=== PATIENT | male | born 1980 | race African-American/Black ===

== ENCOUNTER 2019-02-09 10:40 | Emergency (ER) | payer BC ==
--- NOTE | 2019-02-09 10:58 | ED Physician Documentation ---
Sore Throat/Dental Pain - HISTORIAN Historian: patient - HPI Chief Complaint: Dental Pain Additional Information: Patient is a 38-year-old male that presents to the ER after his daughter accidentally hit his bottom teeth with her head. He states his teeth are pretty sore- teeth do not appear loose- no lacerations or abrasions to lips/gums. Denies any bleeding of teeth, tongue, or throat. Onset: hours Context: Other (tooth injury) Associated Symptoms: denies: unable to swallow Worsened By: nothing Further Comments: no - ROS CONST: no problems CVS/RESP: none GI/: denies: nausea, vomiting MS/SKIN/LYMPH: denies: muscle aches NEURO/PSYCH: none - PAST HX Past History: none Other History: none Immunizations: UTD Allergies/Adverse Reactions: Allergies Allergy/AdvReac Type Severity Reaction Status Date / Time tramadol AdvReac Abdominal Verified 02/09/19 11:01 Pain Home Medications: Ambulatory Orders Medication Instructions Recorded NK 02/09/19 - SOCIAL HX Smoking History: non-smoker Alcohol Use: none Drug Use: none - FAMILY HX Family History: No Dental Pain Physical Exam - EXAM General Appearance: no acute distress, alert Head/Neck: head nml inspection, neck nml inspection Eyes: PERRL Mouth/Throat: lips nml, gums nml, pharynx nml, voice nml, membranes nml, dental tenderness (no feeling of loose teeth) Ear/Nose: nml inspection Respiratory: breath sounds nml CVS: heart sounds nml Abdomen: normal bowel sounds Skin: warm/dry, normal color Neuro/Psych: none Discharge Clincal Impression: Pain, dental Referrals: Primary Doctor,No [Primary Care Provider] - 2 Days Additional Instructions: Teeth are intact Alternate Tylenol and Ibuprofen as needed for discomfort Follow up with Dentist for routine care Condition: Good Disposition: 01 HOME, SELF-CARE Decision to Admit: NO Decision Time: 11:04
[2019-02-09 11:12] VITALS: BP 140/101
== END 2019-02-09 11:04 | disposition home or self-care (01) ==
LOC: ED 10:40
DX: K08.89 Other specified disorders of teeth and supporting structures (principal)
CPT/HCPCS: 99281